=== PATIENT | male | born 1955 | race Hispanic/Latino ===

== ENCOUNTER 2016-10-07 11:24 | Inpatient (IN) | payer OTHER ==
[2016-10-07] MEDS ORDERED: FENTANYL 100 MCG/2 ML VIAL ONE (11:41)
[2016-10-07 12:15] LABS: BASOPHIL# 0.1 X 10^3uL (0.0-0.1); BASOPHILS 0.8 % (0.0-2.0); EOSINOPHILS 2.2 % (0.0-6.0); EOSINOPHILS# 0.2 X 10^3uL (0.0-0.4); HEMATOCRIT 48.6 % (42.0-54.0); HEMOGLOBIN 17.1 g/dL (14.0-18.0); LYMPHOCYTES 31.7 % (20.0-40.0); LYMPHOCYTES# 2.6 X 10^3uL (0.8-3.8); MEAN CELL VOLUME 88.6 fL (84.0-102.0); MEAN CORPUS. HGB CONCENTRATION 35.2 g/dL (32.0-36.0); MEAN CORPUSCULAR HEMOGLOBIN 31.2 pg (29.0-35.0); MEAN PLATELET VOLUME 7.8 fL (7.4-10.4); MONOCYTES 5.6 % (2.0-10.0); MONOCYTES# 0.5 X 10^3uL (0.2-1.0); NEUTROPHILS 59.7 % (54.0-75.0); NEUTROPHILS# 4.7 X 10^3uL (2.6-6.7); PLATELET COUNT 226 X 10^3uL (130-440); RED BLOOD COUNT 5.49 X 10^6uL (4.20-6.10); WHITE BLOOD COUNT 8.1 X 10^3uL (3.9-10.7)
[2016-10-07 12:23] LABS: BLOOD UREA NITROGEN 23 mg/dL (9-20); CHLORIDE 106 mmol/L (98-107); CREATININE 0.7 mg/dL (0.7-1.3); EST GLOMERULAR FILTRATION RATE > 60 mL/min; GLUCOSE 114 mg/dL (70-100); INR 1.1; POTASSIUM 3.8 mmol/L (3.5-5.1); SODIUM 140 mmol/L (137-145)
[2016-10-07] MEDS ORDERED: HYDROmorphone HCL 1 MG/ML SYR ONE ×2 (12:44→13:28)
[2016-10-07] MEDS ORDERED: ONDANSETRON HCL 4 MG/2 ML VIAL ONE (12:44)
[2016-10-07] MEDS ORDERED: DEXTROSE 5% NS 1000 ML 1,000 ML IV SCH (14:00)
--- NOTE | 2016-10-07 14:01 | ER NURSING DOCUMENTATION ---
Nurse's Notes [facility] Name:Mundo Silverman Age:61 yrs Sex:Male :1955 Arrival Date:10/07/2016 Time:11:24 Bed6 Private MD: Diagnosis:Subcapital Hip Fracture Presentation: 10/07 11:29 Acuity: JACOB 2 tg 11:38 Presenting complaint: Patient states: Tripped over a trailer hitch, landed on right tg hip. Unable to bear weight due to pain in right hip. Transition of care: patient was not received from another setting of care. 11:38 Method Of Arrival: Private Vehicle tg Triage Assessment: 11:37 General: Appears uncomfortable, Behavior is anxious, cooperative. Pain: Complains of tg pain in right hip Aggravated by repositioning, weight bearing. Neuro: Level of Consciousness is awake, alert. Cardiovascular: Capillary refill < 3 seconds. Respiratory: Respiratory effort is even, unlabored. Derm: Skin is pink, warm & dry. 13:42 Musculoskeletal:. tg Historical: - Allergies: No known drug Allergies; - Home Meds: 1. Prilosec Oral - PMHx: GERD; - PSHx: prostate; HERNIA REPAIR; - Tetanus: unknown will f/u with PCP. - Ebola Screening: : Patient negative for fever greater than or equal to 101.5 degrees Fahrenheit, and additional compatible Ebola Virus Disease symptoms. Patient denies exposure to infectious person. Patient denies travel to an Ebola-affected area in the 21 days before illness onset. No symptoms or risks identified at this time. . - Social history: Smoking status: Patient states former smoker of tobacco. - Immunization history: Flu Vaccine unknown. Screenin:39 Infectious Disease Risk Unable to Obtain. Abuse screen: Denies threats or abuse. Denies tg injuries from another. Nutritional screening: No deficits noted. Assessment: 13:14 Reassessment: Muscle spasms every few minutes. . See Triage Assessment done by same RN. tg Vital Signs: 11:38 BP 133 / 94; Pulse 74; Resp 20; Pulse Ox 94% on R/A; tg 12:00 Temp 98.4; Weight 79.38 kg; Height 5 ft. 8 in. (172.72 cm); tg 12:46 Pain 9/10; lpr 12:50 Pulse Ox 86% on R/A; lpr 13:40 BP 108 / 81; Pulse 75; Resp 12; Pulse Ox 93% on 2.5 lpm NC; Pain 1/10; tg 12:00 Body Mass Index 26.61 (79.38 kg, 172.72 cm) tg ED Course: 11:25 Patient arrived in ED. ds 11:29 Ty Farris, RN is Primary Nurse. tg 11:29 Triage completed. tg 11:35 Patient moved to radiology. mr 11:39 Valuables Remains with patient. tg 11:58 Patient moved back from radiology. mr 12:00 Inserted peripheral IV: 20 gauge in right forearm. tg 12:04 Satnam Benson MD is Attending Physician. tl1 12:06 Bill Harrison MD is Admitting Physician. tl1 12:09 Port Xray Completed. mr 12:50 Oxygen Oxygen administration via nasal cannula @ 2L/min. lpr 13:13 Head of bed elevated. tg 14:15 EKG attached tg Administered Medications: 11:36 Drug: fentaNYL [place] 100 mcg; Route: Intranasal; Site: both nares; tg 12:47 Drug: Zofran 4 mg; Route: IVP; Infused Over: 2 mins; Site: right forearm; lpr 13:13 Follow up: Response: No adverse reaction tg 12:47 Drug: Dilaudid 1 mg; Route: IVP; Site: right forearm; lpr 13:14 Follow up: Response: Pain is decreased tg 13:13 Drug: NS 0.9% 1000 ml; Route: IV; Rate: 100 ml/hr; Site: right forearm; tg 13:36 Follow up: IV Status: Completed infusion; IV Intake: 600ml tg 13:35 Drug: Dilaudid 1 mg; Route: IVP; Site: right forearm; tg 13:38 Follow up: Response: Pain is decreased tg Intake: 13:36 IV: 600ml; Total: 600ml. tg Output: 14:00 Urine: 0ml; Total: 0ml. tg Outcome: 12:07 Decision to Admit by Provider. tl1 13:40 Admitted to Med/surg accompanied by nurse, via stretcher. tg 13:40 Condition: stable 13:40 Discharge Assessment: Patient awake and alert. 13:40 Instructed on discharge instructions. 14:01 Patient left the ED. tg Signatures: Ty Farris RN RN tg Srot, Dominique, Reg Reg ds Katie Kennedy RN RN lpr Satnam Benson MD MD tl1 Bill Kaminski mr
[2016-10-07] MEDS ORDERED: NORMAL SALINE 1,000 ML IV ONE (14:13)
[2016-10-07] MEDS ORDERED: ACETAMINOPHEN 500 MG TABLET PO ONE (14:13)
[2016-10-07] MEDS ORDERED: ACETAMINOPHEN 500 MG TABLET PO PRN (14:19)
[2016-10-07] MEDS: MORPHINE SULFATE 2 MG/ML SYR IV PRN ×3 (14:23→22:50)
[2016-10-07] MEDS ORDERED: MORPHINE SULFATE 2 MG/ML SYR ONE ×2 (17:58→22:59)
[2016-10-07 18:02] LABS: ABO GROUP TYPE O; ANTIBODY SCREEN NEGATIVE; RH TYPE NEGATIVE
[2016-10-07 21:44] LABS: URINE APPEARANCE CLEAR; URINE BILIRUBIN NEGATIVE (NEGATIVE); URINE BLOOD NEGATIVE (NEGATIVE); URINE COLOR YELLOW; URINE GLUCOSE NORMAL (NEGATIVE); URINE KETONE NEGATIVE (NEGATIVE); URINE LEUKOCYTE ESTERASE NEGATIVE (NEGATIVE); URINE MUCUS NONE SEEN (Up to 25%); URINE NITRITE NEGATIVE (NEGATIVE); URINE PROTEIN NEGATIVE (NEG - TRACE); URINE RBC NONE SEEN (0-5/hpf); URINE SPECIFIC GRAVITY > OR = 1.030 (0.001-1.035); URINE SQUAMOUS EPITHELIAL CELL 0-5/hpf (<= 15/hpf); URINE UROBILINOGEN NORMAL (NEG-1mg/dL); URINE WBC 0-4/hpf (0-4/hpf)
[2016-10-07 21:45] LABS: URINE AMORPHOUS SEDIMENT UP TO 25%/lpf (Up to 25%); URINE BACTERIA NONE SEEN (<10/hpf)
--- NOTE | 2016-10-08 07:48 | RADIOLOGY REPORT ---
Three views of the right hip demonstrate a fracture of the femoral neck with superior displacement. Femoral head is located within the acetabulum. The right hip joint appears unremarkable. No other abnormality is identified. IMPRESSION: Right femoral neck fracture. MTDD
--- NOTE | 2016-10-08 07:49 | RADIOLOGY REPORT ---
A limited single portable view of the chest, without prior films for comparison , demonstrates the heart, vessels and lungs to be unremarkable. No infiltrate, fluid or pneumothorax is seen. IMPRESSION: Unremarkable limited single portable view of the chest. MTDD
[2016-10-08] MEDS: MORPHINE SULFATE 2 MG/ML SYR IV PRN ×3 (08:44→10:50)
[2016-10-08] MEDS ORDERED: NORMAL SALINE FLUSH 250 ML ONE (10:59)
[2016-10-08] MEDS ORDERED: MORPHINE SULFATE 2 MG/ML SYR IV PRN ×2 (11:13→14:21)
[2016-10-08] MEDS ORDERED: ACETAMINOPHEN 500 MG TABLET PO PRN ×2 (11:13→14:21)
[2016-10-08] MEDS ORDERED: LIDOCAINE HCL 1% 20 ML VIAL SUBCUT ONE ×2 (11:13→14:21)
[2016-10-08] MEDS ORDERED: MIDAZOLAM HCL 2 MG/2 ML SYR IV ONE (11:13)
[2016-10-08] MEDS ORDERED: FENTANYL 100 MCG/2 ML VIAL IV ONE ×2 (11:13→14:21)
[2016-10-08] MEDS ORDERED: DEXTROSE 5% NS 1000 ML 1,000 ML IV SCH ×2 (11:13→14:21)
[2016-10-08] MEDS ORDERED: ACETAMINOPHEN 1,000 MG/100 ML VIAL IV SCH ×2 (11:15→14:21)
[2016-10-08] MEDS ORDERED: FAMOTIDINE IN SALINE, ISO-OSM 20 MG/50 ML PIGGYBACK IV SCH ×2 (11:15→14:21)
[2016-10-08] MEDS ORDERED: CEFAZOLIN SODIUM/DEXTROSE,ISO 2 GM/50 ML PIGGYBACK IV ONE ×4 (11:30→14:21)
[2016-10-08] MEDS ORDERED: MIDAZOLAM HCL 2 MG/2 ML VIAL ONE (11:32)
[2016-10-08] MEDS ORDERED: FAMOTIDINE IN SALINE, ISO-OSM 50 ML IV ONE (11:32)
[2016-10-08] MEDS ORDERED: TRANEXAMIC ACID 1,000 MG/10 ML VIAL IV ONE (11:33)
[2016-10-08] MEDS ORDERED: ACETAMINOPHEN 1,000 MG/100 ML VIAL IV ONE (11:34)
[2016-10-08] MEDS ORDERED: LACTATED RINGERS 1,000 ML IV SCH ×2 (12:00→14:21)
[2016-10-08] MEDS ORDERED: FENTANYL 100 MCG/2 ML VIAL ONE (12:00)
[2016-10-08] MEDS ORDERED: TRANEXAMIC ACID 1,000 MG in NORMAL SALINE 100 ML IV SCH ×3 (12:00→14:21)
[2016-10-08] MEDS ORDERED: ROCURONIUM BROMIDE 50 MG/5 ML VIAL IV ONE (12:00)
[2016-10-08] MEDS ORDERED: TETRACAINE HCL 1% 20 MG/2 ML AMP ONE (12:00)
[2016-10-08] MEDS ORDERED: SUCCINYLCHOLINE CHLORIDE 200 MG/10 ML VIAL ONE (12:00)
[2016-10-08] MEDS ORDERED: MORPHINE SULFATE/PF 10 MG/10 ML VIAL ONE ×2 (12:02→15:13)
[2016-10-08] MEDS ORDERED: EPHEDrine SULFATE 50 MG/ML VIAL ONE (13:35)
[2016-10-08] MEDS ORDERED: ROPIVACAINE HCL 0.5% 30 ML ONE (14:10)
[2016-10-08] MEDS ORDERED: WATER FOR INJECTION 10 ML ONE (14:10)
[2016-10-08] MEDS ORDERED: KETOROLAC TROMETHAMINE 30 MG/ML VIAL ONE (14:10)
[2016-10-08] MEDS ORDERED: DIPHENHYDRAMINE 50 MG/ML VIAL IV PRN ×2 (14:21→15:53)
[2016-10-08] MEDS ORDERED: ONDANSETRON HCL 4 MG/2 ML VIAL IV PRN ×2 (14:21→15:53)
[2016-10-08] MEDS ORDERED: MORPHINE SULFATE 10 MG/ML SYR IV PRN (14:21)
[2016-10-08] MEDS ORDERED: NALBUPHINE HCL 10 MG/ML AMP IV PRN ×2 (14:21→15:53)
[2016-10-08] MEDS ORDERED: DIPHENHYDRAMINE 25 MG CAPSULE PO PRN ×2 (14:21→15:53)
[2016-10-08] MEDS ORDERED: MEPERIDINE HCL/PF 50 MG/ML SYR IV PRN (14:21)
[2016-10-08] MEDS ORDERED: NALOXONE HCL 0.4 MG/ML VIAL IV PRN ×6 (14:21→15:53)
[2016-10-08] MEDS ORDERED: FENTANYL 100 MCG/2 ML VIAL IV PRN (14:21)
[2016-10-08] MEDS ORDERED: HYDROmorphone HCL 1 MG/ML SYR IV PRN (14:21)
[2016-10-08] MEDS ORDERED: DEXAMETHASONE 4 MG/ML VIAL ONE (14:35)
[2016-10-08] MEDS ORDERED: BUPIVACAINE/EPI 0.25% 1 VIAL VIAL ONE (14:44)
[2016-10-08] MEDS ORDERED: SUGAMMADEX SODIUM 200 MG/2 ML VIAL IV ONE (14:45)
--- NOTE | 2016-10-08 15:15 | PROCEDURE NOTE: Orthopedics ---
Orthopedic Procedure note - Brief Operative Note Date of procedure: 10/08/16 Pre-Op Diagnosis: RIGHT Femoral neck FRACTURE Post-op diagnosis: same Procedure: R RIGOBERTO Implants: Depuy Size 5 [place] femoral component, 60mm Gription acetabular component, 40X8.5 ceramic head Anesthesia Type: Block/ General Physician: KEILA CARABALLO Estimated Blood Loss: 300 Specimen/Pathology: none sent Sponge/instrument count: correct X-ray/Fluoroscopy: No Condition: stable Disposition: PACU
[2016-10-08] MEDS ORDERED: IPRATROPIUM/ALBUTEROL 0.5/3 MG 3 ML AMPUL.NEB INHALATION PRN ×2 (15:52→15:53)
[2016-10-08] MEDS ORDERED: TAMSULOSIN HCL 0.4 MG CAPSULE PO PRN (15:53)
[2016-10-08] MEDS ORDERED: ALBUTEROL 0.083% 2.5 MG/3 ML VIAL.NEB INHALATION ONE (15:59)
[2016-10-08] MEDS ORDERED: ALBUTEROL 0.083% 2.5 MG/3 ML VIAL.NEB INHALATION PRN (16:30)
[2016-10-08 16:53] LABS: URINE SQUAMOUS EPITHELIAL CELL NONE SEEN (<= 15/hpf)
[2016-10-08 17:02] LABS: URINE APPEARANCE CLEAR; URINE COLOR YELLOW; URINE GLUCOSE NORMAL (NEGATIVE); URINE LEUKOCYTE ESTERASE NEGATIVE (NEGATIVE); URINE NITRITE NEGATIVE (NEGATIVE); URINE PROTEIN 30mg/dL (1+) (NEG - TRACE); URINE SPECIFIC GRAVITY 1.025 (0.001-1.035)
[2016-10-08 17:03] LABS: URINE BILIRUBIN NEGATIVE (NEGATIVE); URINE BLOOD 50 Ery/uL (2+) (NEGATIVE); URINE KETONE NEGATIVE (NEGATIVE); URINE UROBILINOGEN 0.2mg/dL (Normal) (NEG-1mg/dL)
[2016-10-08 17:05] LABS: URINE MUCUS UP TO 25%/lpf (Up to 25%); URINE RBC 0-5/hpf (0-5/hpf)
[2016-10-08] MEDS ORDERED: O2 HUMIDIFIER 650 ML BOTTLE INHALATION ONE (18:13)
[2016-10-08] MEDS ORDERED: DIPHENHYDRAMINE 2% TOPICAL PRN (18:23)
[2016-10-08] MEDS ORDERED: DIPHENHYDRAMINE 2% TOPICAL ONE (18:32)
[2016-10-08] MEDS: DEXTROSE 5% LACTATED RINGERS 1,000 ML IV SCH (18:37)
--- NOTE | 2016-10-08 18:40 | OPERATIVE REPORT ---
DATE OF SURGERY: 10/08/16 SURGEON: Bill Harrison MD PREOPERATIVE DIAGNOSIS: Displaced fracture of the right femoral neck. POSTOPERATIVE DIAGNOSIS: Displaced fracture of the right femoral neck. PROCEDURE PERFORMED: Right total hip arthroplasty. IMPLANTS USED: DePuy hip system with a size 5 [place] stem and a 60 mm Gription acetabular shell, with a 40 mm ceramic head. INDICATIONS FOR PROCEDURE: Patient is a 60-year-old male who fell and sustained a displaced fracture of his femoral neck. Due to the fact that there was displacement of the fracture as well as comminution of the inferior portion of the femoral neck, it did not appear to be a reasonable option to attempt internal fixation, and therefore, he was taken to the operating room for hip arthroplasty. Due to his young age, we felt that it was more appropriate to perform total hip arthroplasty versus bipolar hemiarthroplasty. SUMMARY: After informed consent was obtained, the patient was taken to the operating room where he was placed in the left lateral decubitus position under spinal block anesthesia with general anesthetic. After adequate anesthesia was achieved, the right hip and lower extremity were prepped and draped in the usual sterile fashion, and a curvilinear incision was performed centered on the greater trochanter. The underlying soft tissue was sharply dissected to reveal the gluteal and tensor fascia. The fascia was incised sharply, and then blunt dissection was carried out down to the greater trochanter. A bursectomy was performed, and then the short external rotators were exposed. A #2 Fiberwire suture was then placed into the distal pyriformis tendon, and the short external rotators were released from the greater trochanter from the posterior aspect of the greater trochanter using electrocautery. The underlying joint capsule was exposed, and then a capsulotomy was performed using a posterior based flap. The femoral neck was exposed, and there was no remaining femoral neck in order for us to smooth the cut. The femoral neck was marked using electrocautery and then an oscillating saw was used to perform the osteotomy through the femoral neck. The femoral head was then captured within the acetabulum using a corkscrew, and then removed from the acetabulum. The acetabulum was then exposed at which time the pulvinar was removed, and the labrum was excised. The acetabulum was then sequentially reamed to a size 59 in order to accommodate a 60 mm acetabular shell. The 59 trial was tapped into place in order to be stable. The acetabulum was then irrigated with copious amounts of sterile saline under pulsatile lavage , and the acetabular shell was tapped into position. The trial insert was then placed into the acetabular shell and attention was focused on the proximal femur. The femur was then reamed, and then subsequently broached to a size 5. A size 5 was noted to have a snug fit, and therefore, the broach was left in place , at which time the calcar planer was used to smooth the proximal cut. The trial neck and head components were then placed onto the femoral stem and the hip was reduced. The patient was noted to have the best combination of limb length and stability with a +8.5 mm head length. Using that construct, we could flex the hip to 90 degrees and internally rotate the hip to about 90 degrees without dislocation. Also he could be adducted well across the midline in the flexed position, and then internally rotated to about 60 degrees without dislocation. Therefore, those component were selected, although we did go ahead and place a lateralized liner. The trial components were all removed, and then the wound was irrigated with copiously amounts of sterile saline under pulsatile lavage. The joint capsule was then injected using the orthopedic cocktail, and then the polyethylene liner was tapped into the acetabular shell. The femoral stem was then also tapped into the femoral canal, and the trial head was placed under the femoral component for one last test. Once again, the hip was noted to have the same stability and good limb length. The trial head was then removed, and the mortise taper was carefully cleaned and then dried, after which the ceramic head was tapped onto the mortise taper component of the femoral stem. The hip was reduced again, and one last time, we checked the stability of the hip. Once again, it was noted that we could flex him to 90 degrees and internally rotate him to 80 degrees without dislocation and we could adduct the knee across the midline and internally rotate the hip to about 60 degrees without dislocation The posterior joint capsule was then repaired to the greater trochanter through drill holes, and then was repaired side to side using #1 Vicryl. The pyriformis tendon also was repaired through the greater trochanter through drill holes. Then a deep drain was placed and the fascia was closed using #1 Vicryl, and an interrupted [id number] fashion. The remaining orthopedic cocktail was injected along the fascial incision. The subcutaneous tissue was then closed using 2-0 Vicryl, and the skin was closed using skin azeem. The subcutaneous tissue was then injected using 0.25% Marcaine with epinephrine. A sterile gauze dressing was then applied, and the patient was placed into a hip abduction cushion. The patient tolerated the procedure well and was taken to the recovery room in stable condition. ESTIMATED BLOOD LOSS: 300 mL. FLUIDS: Lactated ringers 1950 mL. MTDD
[2016-10-08] MEDS: PANTOPRAZOLE 40 MG TABLET PO SCH (18:46)
[2016-10-08] MEDS: CELECOXIB 100 MG CAPSULE PO SCH (19:19)
[2016-10-08] MEDS: DOCUSATE SODIUM 100 MG CAPSULE PO SCH (20:57)
[2016-10-08] MEDS ORDERED: NON-FORMULARY MEDICATION (Omeprazole [Prilosec] 20 MG) PO SCH (21:00)
[2016-10-09] MEDS: DEXTROSE 5% LACTATED RINGERS 1,000 ML IV SCH ×2 (03:13→15:21)
[2016-10-09] MEDS: ACETAMINOPHEN 325 MG TABLET PO PRN ×3 (03:13→16:02)
[2016-10-09] MEDS: PANTOPRAZOLE 40 MG TABLET PO SCH ×2 (05:58→17:00)
[2016-10-09 05:59] LABS: BASOPHILS 0.2 % (0.0-2.0); EOSINOPHILS 0.2 % (0.0-6.0); HEMATOCRIT 38.1 % (42.0-54.0); HEMOGLOBIN 12.9 g/dL (14.0-18.0); LYMPHOCYTES 9.3 % (20.0-40.0); MEAN CELL VOLUME 89.5 fL (84.0-102.0); MEAN CORPUS. HGB CONCENTRATION 33.7 g/dL (32.0-36.0); MEAN CORPUSCULAR HEMOGLOBIN 30.2 pg (29.0-35.0); MEAN PLATELET VOLUME 7.9 fL (7.4-10.4); MONOCYTES# 0.7 X 10^3uL (0.2-1.0); NEUTROPHILS 84.3 % (54.0-75.0); NEUTROPHILS# 9.6 X 10^3uL (2.6-6.7); RED BLOOD COUNT 4.26 X 10^6uL (4.20-6.10); RED CELL DISTRIBUTION WIDTH 11.9 % (11.5-14.5); WHITE BLOOD COUNT 11.3 X 10^3uL (3.9-10.7)
--- NOTE | 2016-10-09 08:19 | PROGRESS NOTE: Orthopedics ---
Orthopedic PN Subjective - Subjective Principal Diagnosis: Post op R RIGOBERTO Post-op Day: 1 Interval history: Pt feels well. Reports minimal pain, but has not yet gotten up. Ortho PN Objective Exam - Latest Vital Signs and I&O Latest Vital Signs/I&O: Vital Signs Temp 36.9 C 10/09/16 07:00 Pulse 100 H 10/09/16 07:00 Resp 12 10/09/16 07:00 BP 106/77 10/09/16 07:00 Pulse Ox 94 10/09/16 07:00 Intake & Output 10/08/16 10/09/16 10/09/16 17:59 05:59 17:59 Intake Total 400 1800 Output Total 350 890 Balance 50 910 Weight 80.739 kg 80.739 kg Intake: IV 150 1100 Right Hand 150 1100 Oral 250 700 Output: Drainage 50 240 Right Hip 50 240 Urine 300 650 Uretheral (Llanes) 150 Other: Urine Appearance Clear Clear Urine Color Yellow Light Ragini Uretheral ([place]) Yellow Voiding Method Indwelling Catheter Indwelling Catheter # Bowel Movements 0 - Post-Operative Exam Post-op Day: 1 Dressing Status: dry & intact Drainage Amount: none Distal Pulses: +2 Active Motor: intact Sensation: intact Melo's sign: Negative - Lab Labs: Laboratory Last Values WBC 11.3 X 10^3uL (3.9-10.7) H 10/09/16 05:00 RBC 4.26 X 10^6uL (4.20-6.10) 10/09/16 05:00 Hgb 12.9 g/dL (14.0-18.0) L 10/09/16 05:00 Hct 38.1 % (42.0-54.0) L 10/09/16 05:00 MCV 89.5 fL (84.0-102.0) 10/09/16 05:00 MCH 30.2 pg (29.0-35.0) 10/09/16 05:00 MCHC 33.7 g/dL (32.0-36.0) 10/09/16 05:00 RDW 11.9 % (11.5-14.5) 10/09/16 05:00 Plt Count 165 X 10^3uL (130-440) 10/09/16 05:00 MPV 7.9 fL (7.4-10.4) 10/09/16 05:00 Neutrophils % 84.3 % (54.0-75.0) H 10/09/16 05:00 Lymphocytes % 9.3 % (20.0-40.0) L 10/09/16 05:00 Eosinophils % 0.2 % (0.0-6.0) 10/09/16 05:00 Basophils % 0.2 % (0.0-2.0) 10/09/16 05:00 Neutrophils # 9.6 X 10^3uL (2.6-6.7) H 10/09/16 05:00 Lymphocytes # 1.0 X 10^3uL (0.8-3.8) 10/09/16 05:00 Monocytes 6.0 % (2.0-10.0) 10/09/16 05:00 Monocytes # 0.7 X 10^3uL (0.2-1.0) 10/09/16 05:00 Eosinophils # 0.0 X 10^3uL (0.0-0.4) 10/09/16 05:00 Basophils # 0.0 X 10^3uL (0.0-0.1) 10/09/16 05:00 PT 15.2 sec (13.0-16.6) 10/07/16 12:00 INR 1.1 10/07/16 12:00 Sodium 140 mmol/L (137-145) 10/07/16 12:00 Potassium 3.8 mmol/L (3.5-5.1) 10/07/16 12:00 Chloride 106 mmol/L (98-107) 10/07/16 12:00 Carbon Dioxide 24 mmol/L (22-30) 10/07/16 12:00 BUN 23 mg/dL (9-20) H 10/07/16 12:00 Creatinine 0.7 mg/dL (0.7-1.3) 10/07/16 12:00 GFR Calculation > 60 mL/min 10/07/16 12:00 Glucose 114 mg/dL (70-100) H 10/07/16 12:00 Calcium 9.0 mg/dL (8.4-10.2) 10/07/16 12:00 Urine Color Yellow 10/08/16 16:20 Urine Appearance Clear 10/08/16 16:20 Urine pH 5.0 (5-7) 10/08/16 16:20 Ur Specific [place] 1.025 (0.001-1.035) 10/08/16 16:20 Urine Protein 30mg/dl (1+) (NEG - TRACE) A 10/08/16 16:20 Urine Ketones Negative (NEGATIVE) 10/08/16 16:20 Urine Blood 50 leroy/ul (2+) (NEGATIVE) A 10/08/16 16:20 Urine Nitrate Negative (NEGATIVE) 10/08/16 16:20 Urine Bilirubin Negative (NEGATIVE) 10/08/16 16:20 Urine Urobilinogen 0.2mg/dl (normal) (NEG-1mg/dL) 10/08/16 16:20 Ur Leukocyte Esterase Negative (NEGATIVE) 10/08/16 16:20 Urine RBC 0-5/hpf (0-5/hpf) 10/08/16 16:20 Urine WBC 5-10/hpf (0-4/hpf) 10/08/16 16:20 Ur Squamous Epith Cells None seen (<= 15/hpf) 10/08/16 16:20 Amorphous Sediment Up to 25%/lpf (Up to 25%) 10/07/16 21:39 Urine Bacteria 10-20 organisms/hpf (<10/hpf) 10/08/16 16:20 Urine Mucus Up to 25%/lpf (Up to 25%) 10/08/16 16:20 Urine Glucose Normal (NEGATIVE) 10/08/16 16:20 ABO Group Type o 10/07/16 12:00 Rh Factor Negative 10/07/16 12:00 Antibody Screen Negative 10/07/16 12:00 Assessment and Plan-Ortho - Date of Encounter Date of Encounter: 10/09/16 (1) Status post total hip replacement, right Assessment and plan: Doing well so far. Plan: Begin PT/mobilization. Monitor H/H Current Visit: Yes Quality Questions - VTE Prophylaxis Assessment VTE Present on Admission?: No Patient at risk for venous thromboembolism?: Yes VTE Risk Level: High Risk VTE Medical Contraindication: N/A-VTE Prophylaxis ordered
[2016-10-09] MEDS: CELECOXIB 100 MG CAPSULE PO SCH ×2 (08:36→18:20)
--- NOTE | 2016-10-09 09:20 | RADIOLOGY REPORT ---
Views of the pelvis are compared with prior films dated 10/07/2016. There has been interval right total hip arthroplasty. Components appear intact and in appropriate position. No other change is identified. IMPRESSION: Interval right total hip arthroplasty. [facility]
[2016-10-09] MEDS: DOCUSATE SODIUM 100 MG CAPSULE PO SCH ×2 (09:38→21:34)
[2016-10-09] MEDS: ENOXAPARIN SODIUM 40 MG/0.4 ML SYR SUBCUT SCH (09:38)
[2016-10-09] MEDS: MULTIVITAMINS THERAPEUTIC 1 TABLET PO SCH (09:38)
--- NOTE | 2016-10-09 14:01 | ER PHYSICIAN DOCUMENTATION ---
Physician Documentation [facility] Name:Mundo Silverman Age:61 yrs Sex:Male :1955 Arrival Date:10/07/2016 Time:11:24 Bed6 Private MD: Satnam Parrish Disposition: 10/08 08:29 Chart complete. tl1 Disposition: 10/07/16 12:07 Admit ordered for Bill Harrison. Preliminary diagnosis is Subcapital Hip Fracture. - Bed requested for Medical/Surgical. - Condition is Good. - Problem is new. - Symptoms are unchanged. 23 HR OBS No HPI: 10/07 11:40 This 61 yrs old Male presents to ER via Private Vehicle with complaints of Hip tl1 Pain - RT. 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 No other complaint. 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 . Historical: - Allergies: No known drug Allergies; - Home Meds: 1. Prilosec Oral - PMHx: GERD; - PSHx: prostate; HERNIA REPAIR; - Tetanus: unknown will f/u with PCP. - Ebola Screening: : Patient negative for fever greater than or equal to 101.5 degrees Fahrenheit, and additional compatible Ebola Virus Disease symptoms. Patient denies exposure to infectious person. Patient denies travel to an Ebola-affected area in the 21 days before illness onset. No symptoms or risks identified at this time. . - Social history: Smoking status: Patient states former smoker of tobacco. - Immunization history: Flu Vaccine unknown. ROS: 11:40 MS/extremity: Positive for injury or acute deformity, pain, tenderness, of the right tl1 hip. 11:40 All other systems are negative. Exam: 11:40 Constitutional: This is a well developed, well nourished patient who is awake, alert, tl1 and in no acute distress. Head/Face: Normocephalic, atraumatic. Eyes: Pupils equal round and reactive to light, extra-ocular motions intact. Lids and lashes normal. Conjunctiva and sclera are non-icteric and not injected. Cornea within normal limits. Periorbital areas with no swelling, redness, or edema. ENT: Nares patent. No nasal discharge, no septal abnormalities noted. Tympanic membranes are normal and external auditory canals are clear. Oropharynx with no redness, swelling, or masses, exudates, or evidence of obstruction, uvula midline. Mucous membranes moist. Neck: Trachea midline, no thyromegaly or masses palpated, and no cervical lymphadenopathy. Supple, full range of motion without nuchal rigidity, or vertebral point tenderness. No Meningismus. Chest/axilla: Normal chest wall appearance and motion. Nontender with no deformity. No lesions are appreciated. Cardiovascular: Regular rate and rhythm with a normal S1 and S2. No gallops, murmurs, or rubs. Normal PMI, no JVD. No pulse deficits. Respiratory: Lungs have equal breath sounds bilaterally, clear to auscultation and percussion. No rales, rhonchi or wheezes noted. No increased work of breathing, no retractions or nasal flaring. Abdomen/GI: Soft, non-tender, with normal bowel sounds. No distension or tympany. No guarding or rebound. No evidence of tenderness throughout. Back: No spinal tenderness. No costovertebral tenderness. Full range of motion. 11:40 Skin: Warm, dry with normal turgor. Normal color with no rashes, no lesions, and no tl1 evidence of cellulitis. 11:40 Musculoskeletal/extremity: Extremities: grossly normal except: noted in the right hip: TTP over greater trochanter, with leg shortened and externally rotated.: Distal NVI. Vital Signs: 11:38 BP 133 / 94; Pulse 74; Resp 20; Pulse Ox 94% on R/A; tg 12:00 Temp 98.4; Weight 79.38 kg; Height 5 ft. 8 in. (172.72 cm); tg 12:46 Pain 9/10; lpr 12:50 Pulse Ox 86% on R/A; lpr 13:40 BP 108 / 81; Pulse 75; Resp 12; Pulse Ox 93% on 2.5 lpm NC; Pain 1/10; tg 12:00 Body Mass Index 26.61 (79.38 kg, 172.72 cm) tg MDM: 11:34 Patient medically screened. tl1 12:30 Data reviewed: vital signs, nurses notes, lab test result(s), radiologic studies. 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 Test interpretation: by ED physician or midlevel provider: plain radiologic studies. Counseling: I had a detailed discussion with the patient and/or guardian regarding: the historical points, exam findings, and any diagnostic results supporting the discharge/admit diagnosis, lab results, radiology results, the need for further work-up and treatment in the hospital. Medication response: The patient's symptoms have improved. Response to treatment: the patient's symptoms have mildly improved after treatment, and as a result, I will admit patient. Physician consultation: Bill Harrison MD was called at 14:00, was contacted at 14:00, regarding patient's condition, need to come to ED to see patient, and will see patient in ED, shortly. ED course: Stable. Pain well controlled.. 12:30 Special discussion: He has a subcapital fracture that will need surgery.. tl1 14:15 EKG attached tg 10/07 12:17 Order name: CBC AUTO DIF, MDIF/RMOR IF IND; Complete Time: 12:24 EDMS 10/07 12:24 Interpretation: Normal: WHITE BLOOD COUNT 8.1; HEMOGLOBIN 17.1; HEMATOCRIT 48.6; tl1 PLATELET COUNT 226. 10/07 12:23 Order name: BASIC METABOLIC PANEL; Complete Time: 12:24 EDMS 10/07 12:24 Interpretation: SODIUM 140; POTASSIUM 3.8; CHLORIDE 106; CARBON DIOXIDE 24; GLUCOSE tl1 114; BLOOD UREA NITROGEN 23; CREATININE 0.7. 10/07 12:24 Order name: PROTIME/INR; Complete Time: 08:32 EDMS 10/08 08:30 Interpretation: Normal: PROTIME 15.2; INR 1.1. tl1 10/07 11:30 Order name: Ice Packs; Complete Time: 12:07 tg 10/07 12:07 Order name: 12-lead EKG; Complete Time: 13:36 tg 10/07 12:53 Order name: Oxygen; Complete Time: 12:53 lpr Dispensed Medications: 11:36 Drug: fentaNYL [place] 100 mcg; Route: Intranasal; Site: both nares; tg 12:47 Drug: Zofran 4 mg; Route: IVP; Infused Over: 2 mins; Site: right forearm; lpr 13:13 Follow up: Response: No adverse reaction tg 12:47 Drug: Dilaudid 1 mg; Route: IVP; Site: right forearm; lpr 13:14 Follow up: Response: Pain is decreased tg 13:13 Drug: NS 0.9% 1000 ml; Route: IV; Rate: 100 ml/hr; Site: right forearm; tg 13:36 Follow up: IV Status: Completed infusion; IV Intake: 600ml tg 13:35 Drug: Dilaudid 1 mg; Route: IVP; Site: right forearm; tg 13:38 Follow up: Response: Pain is decreased tg Signatures: Ty Farris RN RN tg Katie Kennedy RN RN lpr Satnam Benson MD MD tl1
[2016-10-09] MEDS ORDERED: POLYETHYLENE GLYCOL 3350 17 GM POWD.PACK ONE (16:04)
[2016-10-10] MEDS: DEXTROSE 5% LACTATED RINGERS 1,000 ML IV SCH (01:24)
[2016-10-10 05:56] LABS: BASOPHILS 0.4 % (0.0-2.0); EOSINOPHILS 3.9 % (0.0-6.0); EOSINOPHILS# 0.3 X 10^3uL (0.0-0.4); HEMATOCRIT 37.6 % (42.0-54.0); HEMOGLOBIN 12.9 g/dL (14.0-18.0); LYMPHOCYTES 10.6 % (20.0-40.0); LYMPHOCYTES# 0.9 X 10^3uL (0.8-3.8); MEAN CELL VOLUME 90.3 fL (84.0-102.0); MEAN CORPUS. HGB CONCENTRATION 34.2 g/dL (32.0-36.0); MEAN CORPUSCULAR HEMOGLOBIN 30.9 pg (29.0-35.0); MEAN PLATELET VOLUME 8.2 fL (7.4-10.4); MONOCYTES 5.5 % (2.0-10.0); MONOCYTES# 0.5 X 10^3uL (0.2-1.0); NEUTROPHILS 79.6 % (54.0-75.0); NEUTROPHILS# 6.7 X 10^3uL (2.6-6.7); RED BLOOD COUNT 4.17 X 10^6uL (4.20-6.10); RED CELL DISTRIBUTION WIDTH 11.9 % (11.5-14.5); WHITE BLOOD COUNT 8.4 X 10^3uL (3.9-10.7)
[2016-10-10] MEDS: PANTOPRAZOLE 40 MG TABLET PO SCH ×2 (06:31→17:26)
[2016-10-10] MEDS: ENOXAPARIN SODIUM 40 MG/0.4 ML SYR SUBCUT SCH (08:25)
[2016-10-10] MEDS: MULTIVITAMINS THERAPEUTIC 1 TABLET PO SCH (08:26)
[2016-10-10] MEDS: CELECOXIB 100 MG CAPSULE PO SCH ×2 (08:26→17:26)
[2016-10-10] MEDS: DOCUSATE SODIUM 100 MG CAPSULE PO SCH ×2 (08:26→21:54)
--- NOTE | 2016-10-10 09:32 | PROGRESS NOTE: Orthopedics ---
Orthopedic PN Subjective - Subjective Principal Diagnosis: Post op R RIGOBERTO Post-op Day: 2 Interval history: Pt feels well. Reports pain is well-controlled. Ortho PN Objective Exam - Latest Vital Signs and I&O Latest Vital Signs/I&O: Vital Signs Temp 37.7 C H 10/10/16 06:23 Pulse 105 H 10/10/16 06:23 Resp 18 10/10/16 06:23 BP 155/84 10/10/16 06:23 Pulse Ox 94 10/10/16 06:23 Intake & Output 10/09/16 10/10/16 10/10/16 17:59 05:59 17:59 Intake Total 1771 1400 Output Total 480 1000 Balance 1291 400 Intake: IV 1131 950 Right Hand 1131 950 Oral 640 450 Output: Urine 480 1000 Other: Urine Appearance Clear Clear Urine Color Light Ragini Light Ragini Voiding Method Indwelling Catheter Urinal # Voids 3 # Bowel Movements 0 - Post-Operative Exam Dressing Status: dry & intact Drainage Amount: none Active Motor: intact Sensation: intact Melo's sign: Negative Calf tenderness: no - Lab Labs: Laboratory Last Values WBC 8.4 X 10^3uL (3.9-10.7) 10/10/16 05:00 RBC 4.17 X 10^6uL (4.20-6.10) L 10/10/16 05:00 Hgb 12.9 g/dL (14.0-18.0) L 10/10/16 05:00 Hct 37.6 % (42.0-54.0) L 10/10/16 05:00 MCV 90.3 fL (84.0-102.0) 10/10/16 05:00 MCH 30.9 pg (29.0-35.0) 10/10/16 05:00 MCHC 34.2 g/dL (32.0-36.0) 10/10/16 05:00 RDW 11.9 % (11.5-14.5) 10/10/16 05:00 Plt Count 169 X 10^3uL (130-440) 10/10/16 05:00 MPV 8.2 fL (7.4-10.4) 10/10/16 05:00 Neutrophils % 79.6 % (54.0-75.0) H 10/10/16 05:00 Lymphocytes % 10.6 % (20.0-40.0) L 10/10/16 05:00 Eosinophils % 3.9 % (0.0-6.0) 10/10/16 05:00 Basophils % 0.4 % (0.0-2.0) 10/10/16 05:00 Neutrophils # 6.7 X 10^3uL (2.6-6.7) 10/10/16 05:00 Lymphocytes # 0.9 X 10^3uL (0.8-3.8) 10/10/16 05:00 Monocytes 5.5 % (2.0-10.0) 10/10/16 05:00 Monocytes # 0.5 X 10^3uL (0.2-1.0) 10/10/16 05:00 Eosinophils # 0.3 X 10^3uL (0.0-0.4) 10/10/16 05:00 Basophils # 0.0 X 10^3uL (0.0-0.1) 10/10/16 05:00 PT 15.2 sec (13.0-16.6) 10/07/16 12:00 INR 1.1 10/07/16 12:00 Sodium 140 mmol/L (137-145) 10/07/16 12:00 Potassium 3.8 mmol/L (3.5-5.1) 10/07/16 12:00 Chloride 106 mmol/L (98-107) 10/07/16 12:00 Carbon Dioxide 24 mmol/L (22-30) 10/07/16 12:00 BUN 23 mg/dL (9-20) H 10/07/16 12:00 Creatinine 0.7 mg/dL (0.7-1.3) 10/07/16 12:00 GFR Calculation > 60 mL/min 10/07/16 12:00 Glucose 114 mg/dL (70-100) H 10/07/16 12:00 Calcium 9.0 mg/dL (8.4-10.2) 10/07/16 12:00 Urine Color Yellow 10/08/16 16:20 Urine Appearance Clear 10/08/16 16:20 Urine pH 5.0 (5-7) 10/08/16 16:20 Ur Specific [place] 1.025 (0.001-1.035) 10/08/16 16:20 Urine Protein 30mg/dl (1+) (NEG - TRACE) A 10/08/16 16:20 Urine Ketones Negative (NEGATIVE) 10/08/16 16:20 Urine Blood 50 leroy/ul (2+) (NEGATIVE) A 10/08/16 16:20 Urine Nitrate Negative (NEGATIVE) 10/08/16 16:20 Urine Bilirubin Negative (NEGATIVE) 10/08/16 16:20 Urine Urobilinogen 0.2mg/dl (normal) (NEG-1mg/dL) 10/08/16 16:20 Ur Leukocyte Esterase Negative (NEGATIVE) 10/08/16 16:20 Urine RBC 0-5/hpf (0-5/hpf) 10/08/16 16:20 Urine WBC 5-10/hpf (0-4/hpf) 10/08/16 16:20 Ur Squamous Epith Cells None seen (<= 15/hpf) 10/08/16 16:20 Amorphous Sediment Up to 25%/lpf (Up to 25%) 10/07/16 21:39 Urine Bacteria 10-20 organisms/hpf (<10/hpf) 10/08/16 16:20 Urine Mucus Up to 25%/lpf (Up to 25%) 10/08/16 16:20 Urine Glucose Normal (NEGATIVE) 10/08/16 16:20 ABO Group Type o 10/07/16 12:00 Rh Factor Negative 10/07/16 12:00 Antibody Screen Negative 10/07/16 12:00 Assessment and Plan-Ortho - Date of Encounter Date of Encounter: 10/10/16 (1) Status post total hip replacement, right Assessment and plan: Doing well post op R RIGOBERTO Plan: Continue PT. Stair training today. Discharge to home tomorrow if safe, given anticipation for heavy snow. Current Visit: Yes
[2016-10-10] MEDS: ACETAMINOPHEN 325 MG TABLET PO PRN (15:18)
[2016-10-11] MEDS: PANTOPRAZOLE 40 MG TABLET PO SCH (06:15)
[2016-10-11] MEDS: ENOXAPARIN SODIUM 40 MG/0.4 ML SYR SUBCUT SCH (08:21)
[2016-10-11] MEDS: DOCUSATE SODIUM 100 MG CAPSULE PO SCH (08:21)
[2016-10-11] MEDS: CELECOXIB 100 MG CAPSULE PO SCH (08:21)
[2016-10-11] MEDS: MULTIVITAMINS THERAPEUTIC 1 TABLET PO SCH (08:21)
[2016-10-11 09:59] VITALS: RESP 16
--- NOTE | 2016-10-11 10:39 | PROGRESS NOTE: Orthopedics ---
Orthopedic PN Subjective - Subjective Principal Diagnosis: Post op R RIGOBERTO Post-op Day: 3 Interval history: Pt feels well, continues to improve with ambulation. Still requires O2 Ortho PN Objective Exam - Latest Vital Signs and I&O Latest Vital Signs/I&O: Vital Signs Temp 36.4 C L 10/11/16 06:14 Pulse 95 H 10/11/16 06:14 Resp 16 10/11/16 09:00 BP 132/99 10/11/16 06:14 Pulse Ox 92 10/11/16 09:53 Intake & Output 10/10/16 10/11/16 10/11/16 17:59 05:59 17:59 Intake Total 1831 850 Output Total 500 950 Balance 1331 -100 Intake: IV 1281 300 Right Hand 1281 300 Oral 550 550 Output: Urine 500 950 Other: Urine Appearance Clear Clear Clear Urine Color Light Ragini Yellow Light Ragini Voiding Method Bedpan Urinal Urinal # Voids 3 # Bowel Movements 0 - Post-Operative Exam Incision: Present: clean and dry Drainage Amount: none Active Motor: intact Sensation: intact Melo's sign: Negative Calf tenderness: no - Lab Labs: Laboratory Last Values WBC 8.4 X 10^3uL (3.9-10.7) 10/10/16 05:00 RBC 4.17 X 10^6uL (4.20-6.10) L 10/10/16 05:00 Hgb 12.9 g/dL (14.0-18.0) L 10/10/16 05:00 Hct 37.6 % (42.0-54.0) L 10/10/16 05:00 MCV 90.3 fL (84.0-102.0) 10/10/16 05:00 MCH 30.9 pg (29.0-35.0) 10/10/16 05:00 MCHC 34.2 g/dL (32.0-36.0) 10/10/16 05:00 RDW 11.9 % (11.5-14.5) 10/10/16 05:00 Plt Count 169 X 10^3uL (130-440) 10/10/16 05:00 MPV 8.2 fL (7.4-10.4) 10/10/16 05:00 Neutrophils % 79.6 % (54.0-75.0) H 10/10/16 05:00 Lymphocytes % 10.6 % (20.0-40.0) L 10/10/16 05:00 Eosinophils % 3.9 % (0.0-6.0) 10/10/16 05:00 Basophils % 0.4 % (0.0-2.0) 10/10/16 05:00 Neutrophils # 6.7 X 10^3uL (2.6-6.7) 10/10/16 05:00 Lymphocytes # 0.9 X 10^3uL (0.8-3.8) 10/10/16 05:00 Monocytes 5.5 % (2.0-10.0) 10/10/16 05:00 Monocytes # 0.5 X 10^3uL (0.2-1.0) 10/10/16 05:00 Eosinophils # 0.3 X 10^3uL (0.0-0.4) 10/10/16 05:00 Basophils # 0.0 X 10^3uL (0.0-0.1) 10/10/16 05:00 PT 15.2 sec (13.0-16.6) 10/07/16 12:00 INR 1.1 10/07/16 12:00 Sodium 140 mmol/L (137-145) 10/07/16 12:00 Potassium 3.8 mmol/L (3.5-5.1) 10/07/16 12:00 Chloride 106 mmol/L (98-107) 10/07/16 12:00 Carbon Dioxide 24 mmol/L (22-30) 10/07/16 12:00 BUN 23 mg/dL (9-20) H 10/07/16 12:00 Creatinine 0.7 mg/dL (0.7-1.3) 10/07/16 12:00 GFR Calculation > 60 mL/min 10/07/16 12:00 Glucose 114 mg/dL (70-100) H 10/07/16 12:00 Calcium 9.0 mg/dL (8.4-10.2) 10/07/16 12:00 Urine Color Yellow 10/08/16 16:20 Urine Appearance Clear 10/08/16 16:20 Urine pH 5.0 (5-7) 10/08/16 16:20 Ur Specific [place] 1.025 (0.001-1.035) 10/08/16 16:20 Urine Protein 30mg/dl (1+) (NEG - TRACE) A 10/08/16 16:20 Urine Ketones Negative (NEGATIVE) 10/08/16 16:20 Urine Blood 50 leroy/ul (2+) (NEGATIVE) A 10/08/16 16:20 Urine Nitrate Negative (NEGATIVE) 10/08/16 16:20 Urine Bilirubin Negative (NEGATIVE) 10/08/16 16:20 Urine Urobilinogen 0.2mg/dl (normal) (NEG-1mg/dL) 10/08/16 16:20 Ur Leukocyte Esterase Negative (NEGATIVE) 10/08/16 16:20 Urine RBC 0-5/hpf (0-5/hpf) 10/08/16 16:20 Urine WBC 5-10/hpf (0-4/hpf) 10/08/16 16:20 Ur Squamous Epith Cells None seen (<= 15/hpf) 10/08/16 16:20 Amorphous Sediment Up to 25%/lpf (Up to 25%) 10/07/16 21:39 Urine Bacteria 10-20 organisms/hpf (<10/hpf) 10/08/16 16:20 Urine Mucus Up to 25%/lpf (Up to 25%) 10/08/16 16:20 Urine Glucose Normal (NEGATIVE) 10/08/16 16:20 ABO Group Type o 10/07/16 12:00 Rh Factor Negative 10/07/16 12:00 Antibody Screen Negative 10/07/16 12:00 Assessment and Plan-Ortho - Date of Encounter Date of Encounter: 10/11/16 (1) Status post total hip replacement, right Assessment and plan: Doing well post op R RIGOBERTO Plan: Discharge to home. Current Visit: Yes
[2016-10-11] MEDS: ACETAMINOPHEN 325 MG TABLET PO PRN (10:57)
[2016-10-11 10:58] VITALS: BP 131/91; PULSE 94; TEMP 97.8; O2SAT 94
== END 2016-10-11 10:52 | disposition home or self-care (01) | DRG 470 ==
LOC: ER 11:24 → IN 13:42
PROVIDERS: ADMIT Orthopaedic Surgery; ATTEND Orthopaedic Surgery
PROC: 0SR903A Replacement of Right Hip Joint with Ceramic Synthetic Substitute, Uncemented, Open Approach (ICD-10-PCS; principal; 2016-10-07)
DX: S72.091A Other fracture of head and neck of right femur, initial encounter for closed fracture (principal); W01.0XXA Fall on same level from slipping, tripping and stumbling without subsequent striking against object, initial encounter
CPT/HCPCS: 36415; 71010; 72170; 80048; 81001; 85025; 85610; 86850; 86900; 86901; 87086; 96374; 96375; 96376; 99285; E0555; J0171; J1170; J1650; J1885; J2250; J2270; J2405; J2795; J7030; J7042; J7613